=== PATIENT | female | born 1945 | race Caucasian/White ===

== ENCOUNTER 2017-01-01 07:49 | Day surgery (SDC) | payer BC ==
[~2017-01-01] VITALS: Ht 142.2 cm; Wt 70.0 kg
[~2017-01-01 07:49] MED LIST: AMLO-147 PO; ASPI81TA3 PO; ATOR20TA38 PO; CARV6.2579 PO; GEMF600T60 PO; LEVO50TA74 PO
[2017-01-01] MEDS ORDERED: HTN MED (09:08)
[2017-01-01] MEDS ORDERED: CHOLESTEROL MED (09:08)
[2017-01-01] MEDS ORDERED: LEVOTHYROXINE (09:08)
[2017-01-01 09:17] VITALS: BP 162/87; PULSE 82; RESP 24
[2017-01-01] MEDS ORDERED: PROPOFOL 20 ML ONE (09:33)
[2017-01-01 10:40] VITALS: BP 152/96; PULSE 74; RESP 14
--- NOTE | 2017-01-01 13:37 | GILP ---
DATE OF PROCEDURE: 01/01/2017 PROCEDURE PERFORMED: 1. Esophagogastroduodenoscopy and biopsy. 2. Colonoscopy and polypectomy. SURGEON: Adama Klein MD PREOPERATIVE DIAGNOSES: 1. Abdominal pain. 2. Screening colonoscopy. POSTOPERATIVE DIAGNOSES: 1. Gastritis with erosions. 2. Gastric mucosal biopsies were taken for Helicobacter pylori test. 3. Colonoscopy all the way to the cecum. 4. Large right colon polyp was removed using the snare and electrocautery. 5. Small cecal polyp was removed using the biopsy forceps. 6. Internal hemorrhoids. INDICATION: The patient is a 71-year-old female patient who had upper abdominal pain not responding to therapy. The patient also noticed change in the bowel habit, and she needed a screening colonoscopy. The procedures and possible complications were well explained to the patient. The patient understood and consented to the procedure. DESCRIPTION OF PROCEDURE: Under the influence of anesthesia, the gastroscope was carefully introduced into the esophagus. Under direct vision, it was advanced to the stomach into the pylorus into the duodenal bulb and descending duodenum. Findings: Esophagus: Mucosa was normal. Stomach: The patient had gastritis with erosions. Gastric mucosal biopsies were taken for Helicobacter pylori test. Duodenum was normal. The colonoscope was carefully introduced in the rectum and, under direct vision, it was advanced all the way to the cecum. Findings: The patient had a large right colon polyp and it was removed using the snare and electrocautery. The patient also had a small cecal polyp, and it was removed using the biopsy forceps. She was noted to have internal hemorrhoids. She tolerated the procedures very well. There were no complications from the procedures. At the end of procedure, she was awake with stable vital signs and she was discharged home in care of her family. IMPRESSION: Please see postoperative diagnoses. PLAN: 1. Nexium 24 hours p.o. q.a.m. 2. Await histopathology reports. 3. Next screening colonoscopy in 5 years. Dictated By: MD ARSENIO Gallo/petr/jeremy /Document#: [id number]
== END 2017-01-01 13:55 | disposition home or self-care (01) ==
LOC: GIL 07:49
PROVIDERS: ATTEND Internal Medicine Gastroenterology
DX: Z12.11 Encounter for screening for malignant neoplasm of colon (principal); K29.50 Unspecified chronic gastritis without bleeding; K63.5 Polyp of colon; D12.0 Benign neoplasm of cecum; K64.8 Other hemorrhoids; I10 Essential (primary) hypertension; E03.9 Hypothyroidism, unspecified; E78.5 Hyperlipidemia, unspecified; E66.9 Obesity, unspecified; Z68.34 Body mass index [BMI] 34.0-34.9, adult
CPT/HCPCS: 43239; 45380; 45385; Z7610; 87081; 88305